=== PATIENT | male | born 1950 | race Caucasian/White ===

== ENCOUNTER 2021-10-30 14:56 | Inpatient (IN) | payer OTHER ==
[~2021-10-30] VITALS: Ht 182.9 cm; Wt 85.6 kg
[~2021-10-30 14:56] MED LIST: AMIT25 PO; Artificial Tea1 EACH BOTHEYES; BISA10S PR; CYANOCOBALAMIN; LIDOCAINE PATCH; MIRALAX17 GM PO; Norco 5-325 Ta1 EACH PO; POLY500; PSEU120ER PO; RANI150 PO; TRIA15CR3 TOP; Viagra100 MG PO
[2021-10-30 17:23] LABS: BASOPHILS ABSOLUTE AUTO 0.04 K/mm3 (0.00-0.23); BASOPHILS PERCENT AUTO 1 % (0-2); EOSINOPHILS ABSOLUTE AUTO 0.07 K/mm3 (0.00-0.68); EOSINOPHILS PERCENT AUTO 2 % (0-6); Hematocrit 38.7 % (37.0-53.0); Hemoglobin 13.3 g/dL (13.5-17.5); IMMATURE GRAN ABSOLUTE AUTO 0.01 K/mm3 (0.00-0.10); IMMATURE GRAN PERCENT AUTO 0 % (0-1); LYMPHOCYTES ABSOLUTE AUTO 1.63 K/mm3 (0.84-5.20); LYMPHOCYTES PERCENT AUTO 39 % (21-46); MONOCYTES ABSOLUTE AUTO 0.42 K/mm3 (0.16-1.47); MONOCYTES PERCENT AUTO 10 % (4-13); Mean Corpuscular HGB 31.6 pg (26.0-34.0); Mean Corpuscular HGB Conc 34.4 g/dL (31.5-36.5); Mean Corpuscular Volume 92 fL (80-100); NEUTROPHILS ABSOLUTE AUTO 1.99 K/mm3 (1.96-9.15); NEUTROPHILS PERCENT AUTO 48 % (41-73); Platelet Count 212 K/mm3 (150-400); RDW Coefficient Variation 11.8 % (11.7-14.2); RDW Standard Deviation 39.7 fL (35.1-46.3); Red Blood Cell Count 4.21 M/mm3 (4.30-5.90); White Blood Cell Count 4.16 K/mm3 (4.00-11.30)
[2021-10-30 17:44] LABS: Very Low Density Lipoprot Chol 14 mg/dL (6-32)
[2021-10-30 17:45] LABS: Alanine Aminotransfer (ALT/SGP 22 U/L (12-78); Albumin, Blood 3.7 g/dL (3.4-5.0); Alk Phos 93 U/L (50-136); Anion Gap 7 mmol/L (6-16); Aspartate Aminotrans (AST/SGOT 14 U/L (12-37); Bilirubin, Total 0.4 mg/dL (0.1-1.0); Blood Urea Nitrogen 12 mg/dL (8-24); Bun/Creatinine Ratio 20.4 (12.0-20.0); CHOL/HDL RATIO 4.3; CO2, Blood 27 mmol/L (21-32); Calcium, Blood 9.3 mg/dL (8.5-10.1); Chloride, Blood 105 mmol/L (98-108); Cholesterol 154 mg/dL (50-200); Creatinine, Blood 0.59 mg/dL (0.60-1.20); Globulin, Blood 3.8 g/dL (2.2-4.0); Glomerular Filtration Rate 102 (60-); Glucose, Blood 110 mg/dL (70-99); HDL Cholesterol 36 mg/dL (>39); LDL/HDL RATIO 2.9; Low Density Lipoprotein Chol 104 mg/dL (0-110); Potassium, Blood 4.2 mmol/L (3.5-5.5); Sodium, Blood 139 mmol/L (136-145); Total Protein, Blood 7.5 g/dL (6.4-8.2); Triglycerides 72 mg/dL (30-160)
--- NOTE | 2021-10-30 19:53 | NUR ---
ADMIT NOTE 71 YR OLD MALE ADMITTED TO FLOOR FROM THE ED, ARRIVED ON FLOOR JUST AT SHIFT COMMENCE. 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 ALERT AND ORIENTED X 4. AFFECT CHEERFUL. NO C/O PAIN AT THIS TIME. TRAY ORDERED. PT EATING. CALL LIGHT IN REACH.
[2021-10-30] MEDS ORDERED: DOXYCYCLINE HYC50 M1 PO (21:34)
--- NOTE | 2021-10-31 03:36 | NUR ---
DIRECTOR ONLINE MARKETING SUMMARY PT ADMIT W/POSSIBLE OCCIPITAL CVA. 71 YR OLD MALE. FULL CODE. PT REPORTING RIGHT EYE PARTIAL INTERMITTANT BLINDNESS. PT DENIES TAKING PRESCRIPTIONS AT HOME. STATES HE D/NOT HAVE HX OF HTN. PT REPORTS HE HAS NEUROPATHY IN BILATERAL LE; NUMBNESS W/NO PAIN. PT IS PLEASANT AND INDEPENDENT IN ROOM. USES A CANE. PT ON NEURO CHECKS Q4 HOURS. PT DEMONSTRATING DIFFICULTY RECALLING DATES/EVENTS AND SEARCHING FOR WORDS. VERBAL EXPRESSION/THOUGHTS ARE SCATTERED. PT HAS ORDER F/STAIGHT CATH F/URINE RETENTION. PT TO HAVE MRI; WAITING F/ORDER.
--- NOTE | 2021-10-31 04:44 | NUR ---
I HAVE READ STUDENT DOCUMENTATION AND OBSERVED HER ASSESSMENTS. I AGREE WITH HER DOCUMENTATION. - LESIA
[2021-10-31 05:41] LABS: Cholesterol 146 mg/dL (50-200); HDL Cholesterol 29 mg/dL (>39); LDL/HDL RATIO 3.3; Low Density Lipoprotein Chol 96 mg/dL (0-110); Triglycerides 106 mg/dL (30-160); Very Low Density Lipoprot Chol 21 mg/dL (6-32)
--- NOTE | 2021-10-31 18:43 | NUR ---
END OF SHIFT SUMMARY: PATIENT DENIED PAIN OR DISCOMFORT THROUGHOUT THE SHIFT. NO CHANGES TO HIS NEURO STATUS NOTED DURING THE SHIFT. PATIENT REPORTED THAT HE INTERMITTANTLY HAS ONLY PARTIAL VISION IN HIS RIGHT. PATIENT TOLERATED IMAGING TODAY WITHOUT DIFFICULTY. UNABLE FOR PORTABLE HEART MONITOR TO BE PLACED THIS EVENING. PLAN IS FOR THE PATIENT TO HAVE IT PLACED IN THE MORNING PRIOR TO DISCHARGE. PATIENT SELF CATHS AND REPORTED THAT HE WOULD LIKE TO USE HIS HOME SUPPLIES. HE HAS HIS HOME SUPPLIES WITH HIM IN THE ROOM.
--- NOTE | 2021-11-01 03:58 | NUR ---
CNC MACHINE SETTER SUMMARY PT ADMIT W/OCCIPITAL CVA. CONT Q4 NEURO CHECKS. PT REPORTS IMPROVEMENT IN HIS VISION; ABLE TO READ A COMPLETE SENTENCE. PT SHOWING SIGNS OF SHORT TERM MEMORTY DEFICITS. ASKING REPEAT QUESTIONS AND NOT RECALLING RECENT INTERACTIONS. PT IS PLEASANT AND COOPERATIVE. PT TO HAVE A ZIO PATCH HEART MONITOR PLACED BEFORE DISCHARGE. PT BE PLACED ON NEW MEDS F/ELEVATED CHOLESTEROL AND BORDERLINE HTN. PT MAY HAVE SOME CONFUSION/MEMORY DEFICITS ABOUT NEW MEDS. PT IS ANXIOUS TO GO HOME. PT RESING COMFORTABLY THROUGH THE NIGHT. CALL LIGHT IN REACH.
[2021-11-01] MEDS ORDERED: ASPI81CH PO (11:23)
[2021-11-01] MEDS ORDERED: ATOR10 PO (11:24)
[2021-11-01] MEDS ORDERED: CLOP75 PO (11:25)
[2021-11-01] MEDS ORDERED: LISI5 PO (11:25)
--- NOTE | 2021-11-01 13:21 | NUR ---
PT AOX4 AND COOPERATIVE OF CARE. PT DID WELL WITH NEURO CHECK NO PROBLEMS IDENTIFIED. PT INDEPENDENT IN ROOM AND WAS DRESSED AND READY TO GO ALL MORNING. ALL PAPER WORK WAS REVIEWED AND EDUCATIONAL MATERIAL SENT WITH PT. PT REMOVED HIS OWN IV OUT OF IMPATIENCE TO GO HOME. PT WAS ESCORTED OUT VIA WHEELCHAIR TO N ENTRANCE. NO DISTRESS NOTED.
== END 2021-11-01 11:47 | disposition home or self-care (01) | DRG 66 ==
LOC: ER 14:56 → MEDS 14:57 → ER 18:48 → MEDS 19:26
PROVIDERS: Physician Assistant; ADMIT Hospitalist
DX: I63.89 Other cerebral infarction (principal); G62.9 Polyneuropathy, unspecified; E78.5 Hyperlipidemia, unspecified; G47.33 Obstructive sleep apnea (adult) (pediatric); I10 Essential (primary) hypertension; N31.9 Neuromuscular dysfunction of bladder, unspecified; Z96.641 Presence of right artificial hip joint; Z99.89 Dependence on other enabling machines and devices; Z88.0 Allergy status to penicillin; Z88.2 Allergy status to sulfonamides; Z98.890 Other specified postprocedural states; Z90.49 Acquired absence of other specified parts of digestive tract; Z90.89 Acquired absence of other organs; Z87.891 Personal history of nicotine dependence; Z79.899 Other long term (current) drug therapy
CPT/HCPCS: 36415; 70450; 70496; 70498; 70551; 80053; 80061; 85025; 93005; 93010; 93246; 93306; 93880; 94760; 97110; 97162; 97165; 99285-25; A9270; G0378; J1650; Q9967

== ENCOUNTER 2021-12-07 23:09 | Emergency (ER) | payer OTHER ==
[~2021-12-07] VITALS: Ht 182.9 cm; Wt 100.7 kg
[~2021-12-07 23:09] MED LIST changes: +ASPI81CH PO; +ATOR10 PO; +CLOP75 PO; +DOXYCYCLINE HYC50 M1 PO; +LISI5 PO
[2021-12-08 00:50] LABS: Influenza A, PCR NEGATIVE (NEGATIVE); Influenza B, PCR NEGATIVE (NEGATIVE); Resp Syncytial Virus, PCR NEGATIVE (NEGATIVE)
[2021-12-08 00:58] LABS: SARS-Cov-2 (COVID-19) PCR, MMC POSITIVE (NEGATIVE)
== END 2021-12-08 02:29 | disposition home or self-care (01) ==
LOC: ER 23:09
PROVIDERS: Emergency Medicine
DX: U07.1 COVID-19 (principal); Z88.0 Allergy status to penicillin; Z88.2 Allergy status to sulfonamides; Z79.899 Other long term (current) drug therapy; Z79.82 Long term (current) use of aspirin; G47.30 Sleep apnea, unspecified
CPT/HCPCS: 0241U; 71045; 99283-25; M0222

== ENCOUNTER → 2022-09-28 | Outpatient (CLI) | payer MEDICARE, OTHER | LOC: LAB 07:36 → LAB SHORT 07:36 | DX: R21 Rash and other nonspecific skin eruption (principal) | CPT/HCPCS: 88312 ==